=== PATIENT | female | born 1930 | race Caucasian/White ===

== ENCOUNTER → 2017-01-20 | Outpatient (CLI) | payer MEDICARE, BC ==
[~2017-01-20] MED LIST: ADVAIR 250-501 EAC1 IH; AFEDITAB CR30 MG PO; ALBUTEROL SULF8.5 G1 IH; LEVOTHYROXINE75 MC1 PO; [UNRECOGNIZED DRUG - REMARK] PO
== END | disposition home or self-care (01) ==
LOC: CSSDAY 10:27
DX: M81.0 Age-related osteoporosis without current pathological fracture (principal)
CPT/HCPCS: 82310; 96372; J0897